=== PATIENT | male | born 1950 | race Hispanic/Latino ===

== ENCOUNTER 2017-08-28 10:44 | Day surgery (SDC) | payer MEDICARE ==
[2017-08-27 07:18] VITALS: BMI 28.4
[2017-08-28] MEDS ORDERED: Propofol 10 mg/ml Inj (20 ML) ONE (12:51)
[2017-08-28] MEDS ORDERED: Midazolam 2 MG/2 ML VIAL ONE (12:57)
[2017-08-28] MEDS ORDERED: Sodium Chloride 0.9% 1,000 ML IV SCH (13:00)
[2017-08-28 14:59] VITALS: BP 116/77; PULSE 77; RESP 18; TEMP 97.5; O2SAT 97
== END 2017-08-28 15:10 | disposition home or self-care (01) ==
LOC: ENDO 10:44
PROVIDERS: ATTEND Internal Medicine Gastroenterology
DX: K62.5 Hemorrhage of anus and rectum (principal); K63.5 Polyp of colon; K57.30 Diverticulosis of large intestine without perforation or abscess without bleeding; K64.8 Other hemorrhoids
CPT/HCPCS: 45378; J2250; J2704; J3010; J7040 ×2